=== PATIENT | female | born 1940 | race Caucasian/White ===

== ENCOUNTER → 2016-11-08 | Outpatient (CLI) | payer MEDICARE, OTHER ==
--- NOTE | 2016-11-09 05:36 | RAD ---
EXAM DESCRIPTION: XR ABDOMEN 1 VIEW (KUB) CLINICAL HISTORY: 76 y/o F, RENAL CALCULI COMPARISON: September 01, 2015. FINDINGS: Single AP view of the abdomen demonstrates concentrated stool seen diffusely throughout the colon. This may represent constipation. No evidence of obstruction. Scattered ring calcifications seen within the left upper quadrant, most likely representing vascular calcifications as there is aortic and bi-iliac atherosclerotic calcifications noted. Status post cholecystectomy. No large volume free air identified. Levoconvex scoliotic curvature and degenerative changes lumbar spine noted. No acute osseous abnormality identified. IMPRESSION: Concentrated stool seen within the colon which may represent constipation. No urinary tract calculi identified. Chronic incidental findings as above. Electronically signed by: Ashu Chavez 11/09/2016 05:33
== END ==
LOC: RAD 13:43
PROVIDERS: ATTEND Urology
DX: N20.0 Calculus of kidney (principal)

== ENCOUNTER → 2016-12-29 | Outpatient (CLI) | payer MEDICARE, OTHER ==
--- NOTE | 2016-12-29 10:56 | RAD ---
EXAM DESCRIPTION: Foot,Left 3 Views CLINICAL HISTORY: 76 yearsFemale, PN IN LEFT FOOT COMPARISON: None. IMPRESSION: 3 views of the left foot small calcaneal noted. Degenerative change. There is an obliquely oriented fracture the distal right fifth metatarsal. Alignment is appropriate. Minimal soft tissue swelling This is best seen on the oblique radiograph. 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
== END | disposition home or self-care (01) ==
LOC: RAD 09:35
PROVIDERS: ATTEND Orthopaedic Surgery
DX: M79.672 Pain in left foot (principal)

== ENCOUNTER → 2017-01-25 | Outpatient (CLI) | payer MEDICARE, OTHER ==
--- NOTE | 2017-01-25 13:43 | RAD ---
EXAM DESCRIPTION: Foot, left 3 Views CLINICAL HISTORY: 76 years Female, CLOSED FX OF TARSAL AND METATARSAL BONES IMPRESSION: 3 views of the left foot reveal a healing, yet incompletely healed obliquely oriented fracture the distal fifth metatarsal. Fracture fragments are in good alignment. Remaining study is stable when compared to December 29, 2016 Electronically signed by: Scooter Evangelista MD 01/25/2017 1:29 PM CDT
== END | disposition home or self-care (01) ==
LOC: RAD 09:19
PROVIDERS: ATTEND Orthopaedic Surgery
DX: S92.214D Nondisplaced fracture of cuboid bone of right foot, subsequent encounter for fracture with routine healing (principal); X58.XXXA Exposure to other specified factors, initial encounter

== ENCOUNTER → 2017-03-01 | Outpatient (CLI) | payer MEDICARE, OTHER | END | disposition home or self-care (01) | LOC: GMAB 10:37 | PROVIDERS: ATTEND Family Medicine | DX: D50.9 Iron deficiency anemia, unspecified (principal) ==

== ENCOUNTER → 2017-03-26 | Outpatient (CLI) | payer MEDICARE, OTHER | END | disposition home or self-care (01) | LOC: GMAB 10:13 | PROVIDERS: ATTEND Family Medicine | DX: E78.2 Mixed hyperlipidemia (principal); I10 Essential (primary) hypertension; E11.9 Type 2 diabetes mellitus without complications ==

== ENCOUNTER → 2017-07-19 | Outpatient (CLI) | payer MEDICARE, OTHER | END | disposition home or self-care (01) | LOC: GMAB 16:27 | PROVIDERS: ATTEND Family Medicine | DX: M76.62 Achilles tendinitis, left leg (principal) ==

== ENCOUNTER → 2017-08-06 | Outpatient (CLI) | payer MEDICARE, OTHER ==
--- NOTE | 2017-08-06 11:28 | MRI ---
Study: MRI of the Left Ankle. Indication: FOOT/ANKLE PAIN Technique: Multiplanar, multi sequence MRI of the left ankle was obtained without intravenous contrast. Comparison: Radiographs December 29, 2016. FINDINGS: Moderate enthesophyte formation Achilles tendon insertion. Slight thickening of the Achilles tendon throughout indicating low-grade tendinosis. No significant increased PD signal or tear. There is inflammation throughout Kaeger's fat pad with trace retrocalcaneal bursal fluid. Prominent plantar calcaneal heel spur without active inflammation of the plantar fascia. No acute fracture. Prominent 9 mm transverse by 11 mm AP grade 4 chondral lesion medial margin talar dome with mild concavity and underlying subchondral cystic change. Mild grade 3 chondral loss lateral margin talar dome. Tiny tibiotalar joint effusion. No acute fracture or talar coalition. Anterior tendons, medial tendons, peroneal tendons intact. Scattered mild osteophytic changes throughout the midfoot. The anterior talofibular ligament, calcaneofibular ligament, posterior talofibular ligament, anterior tibiofibular ligament, posterior tibiofibular ligament, superficial/deep deltoid ligament, and spring ligament are intact. IMPRESSION: Achilles tendinosis and inflammation at its insertion without high-grade tear or acute inflammation. There is however edema/inflammation at Kaeger's fat pad with trace retrocalcaneal bursal fluid. Dominant grade 4 chondral lesion medial margin talar dome. Mild osteoarthritis throughout the midfoot. Electronically signed by: Manuelito Cuevas MD 08/06/2017 11:27 AM CDT
== END | disposition home or self-care (01) ==
LOC: MRI 09:01
PROVIDERS: ATTEND Family Medicine
DX: M79.672 Pain in left foot (principal)

== ENCOUNTER → 2017-10-25 | Outpatient (CLI) | payer MEDICARE, OTHER | END | disposition home or self-care (01) | LOC: GMAB 14:41 | PROVIDERS: ATTEND Family Medicine | DX: L03.115 Cellulitis of right lower limb (principal); M25.571 Pain in right ankle and joints of right foot ==

== ENCOUNTER → 2017-12-06 | Outpatient (CLI) | payer MEDICARE, OTHER | LOC: GMAB 10:19 | PROVIDERS: ATTEND Family Medicine | DX: D50.9 Iron deficiency anemia, unspecified (principal); E53.8 Deficiency of other specified B group vitamins ==

== ENCOUNTER → 2018-04-01 | Outpatient (CLI) | payer MEDICARE, OTHER | LOC: GMAB 11:09 | PROVIDERS: ATTEND Family Medicine | DX: I10 Essential (primary) hypertension (principal) ==

== ENCOUNTER → 2018-10-11 09:01 | Emergency (ER) | payer MEDICARE, OTHER ==
--- NOTE | 2018-10-11 09:17 | ED.PDOC ---
History of Present Illness - General Chief Complaint: Cardiac Respiratory Arrest Time Seen by Provider: 10/11/18 09:13 Source: family Exam Limitations: clinical condition - FAMILY REPORTS NO CHANGE IN USUSAL STATE OF HEALTH PRIOR TO TODAY - History of Present Illness Initial Comments: PT WAS AT WORK TODAY. WAS SEEN AT 730 IN USUAL STATE OF HEALTH. AT 0830 WAS FOUND UNRESPONSIVE AND PULSELESS IN CHAIR. EMS SUMMONED. WAS CALLED BY EMS REPORTED PT IN ASYSTOLE COOL TO TOUCH NO IV. REQUESTED TO PRONOUNCE PT IN FIELD. AGREED HOWEVER PT WAS TRANSPORTED HERE DUE TO LARGE AMOUNT OF BYSTANDARDS. CPR ENROUTE BUT NO MEDICATIONS. ARRIVED WITH COMBITUBE IN PLACE. Review of Systems - Review of Systems Constitutional: States: see HPI EENTM: States: see HPI Respiratory: States: see HPI Cardiology: States: see HPI Gastrointestinal/Abdominal: States: see HPI Genitourinary: States: see HPI Musculoskeletal: States: see HPI Neurological: States: see HPI Endocrine: States: see HPI Hematologic/Lymphatic: States: see HPI Unable to Obtain Due To: intubated, clinical condition Past Medical History (General) - Patient Medical History Hx Hypertension: Yes Hx Diabetes: Yes Physical Exam - Physical Exam General Appearance: Other - UNRESPONSIVE Eyes, Ears, Nose, Throat Exam: other - PUPILS FIXED, DILATED, NO DOLLS EYES. COMBITUBE IN PLACE. Neck: normal inspection Respiratory: other - NO RESPIRATIONS Cardiovascular/Chest: other - NO CARDIAC ACTIVITY, NO PULSE Gastrointestinal/Abdominal: soft, other - NO MASSES Neurologic: other - GCS 3 Skin Exam: other - COOL, SLIGHTLY PALE Procedures - Additional Procedures Progress: ASYSTOLE CONFIRMED 2 LEADS. Departure - Departure Clinical Impression: Cardiac arrest, Respiratory arrest Time of Disposition: 09:05 Disposition: Referrals: Adelfo Engel MD [Primary Care Provider] - 1-2 Weeks
[2018-10-11 09:24] VITALS: TEMP 95.1
== END | disposition expired ==
LOC: ER 09:01
DX: I46.9 Cardiac arrest, cause unspecified (principal); I10 Essential (primary) hypertension; E11.9 Type 2 diabetes mellitus without complications